=== PATIENT | female | born 1995 | race Asian ===

== ENCOUNTER 2019-10-01 20:32 | Emergency (ER) | payer BC, MEDICAID ==
[~2019-10-01] VITALS: Ht 162.6 cm; Wt 54.5 kg
[2019-10-01] MEDS ORDERED: PNV1TABL89 PO (20:54)
[2019-10-01 23:36] VITALS: BP 121/70
== END 2019-10-01 23:55 | disposition home or self-care (01) ==
LOC: EMS 20:34
DX: Z04.3 Encounter for examination and observation following other accident (principal); V43.62XA Car passenger injured in collision with other type car in traffic accident, initial encounter; Y93.89 Activity, other specified; Y92.89 Other specified places as the place of occurrence of the external cause; Y99.8 Other external cause status
CPT/HCPCS: Z7502